=== PATIENT | male | born 1930 | race Caucasian/White ===

== ENCOUNTER 2018-01-07 14:03 | Outpatient (CLI) | payer MEDICARE ==
[2018-01-07 18:15] LABS: INR 2.5 (0.8-1.2); PT - PROTHROMBIN TIME 27.3 secs (9.9-12.6)
== END 2018-01-07 14:04 | disposition home or self-care (01) ==
LOC: LAB.F 14:03
PROVIDERS: ATTEND Internal Medicine Cardiovascular Disease
DX: I48.91 Unspecified atrial fibrillation (principal)
CPT/HCPCS: 36415; 85610

== ENCOUNTER 2018-03-03 11:01 | Outpatient (CLI) | payer MEDICARE ==
[2018-03-03 17:54] LABS: INR 2.2 (0.8-1.2); PT - PROTHROMBIN TIME 24.2 secs (9.9-12.6)
== END 2018-03-03 11:02 | disposition home or self-care (01) ==
LOC: LAB.F 11:01
PROVIDERS: ATTEND Internal Medicine Cardiovascular Disease
DX: I48.91 Unspecified atrial fibrillation (principal)
CPT/HCPCS: 36415; 85610

== ENCOUNTER 2018-03-23 09:42 | Outpatient (CLI) | payer MEDICARE | END 2018-03-23 09:43 | disposition critical access hospital (66) | LOC: EMS 09:42 | PROVIDERS: ATTEND Surgery | DX: M54.2 Cervicalgia (principal); W19.XXXA Unspecified fall, initial encounter; Y92.008 Other place in unspecified non-institutional (private) residence as the place of occurrence of the external cause | CPT/HCPCS: A0425; A0429 ==

== ENCOUNTER 2018-03-23 10:10 | Emergency (ER) | payer MEDICARE ==
[2018-03-23] MEDS ORDERED: SODIUM CHLORIDE 0.9% 1,000 ML IV ONE (10:20)
[2018-03-23] MEDS ORDERED: METOPROLOL 5 MG/5 ML VIAL IVP STA (10:23)
[2018-03-23 10:26] LABS: BASOPHILS % (AUTO) 0.2 %; HGB - HEMOGLOBIN 13.5 g/dL (14.0-18.0); LYMPHOCYTES # (AUTO) 0.3 10^3/uL (1.5-3.5); LYMPHOCYTES % (AUTO) 2.1 %; MEAN CORPUSCULAR HEMOGLOBIN 30.2 pg (27.0-31.0); MEAN CORPUSCULAR HGB CONC 32.5 g/dL (32.0-36.0); MEAN PLATELET VOLUME 11.8 fL (7.4-11.4); MONOCYTES # (AUTO) 1.5 10^3/uL (0.0-1.0); MONOCYTES % (AUTO) 8.8 %; NEUTROPHILS % (AUTO) 88.9 %; PLT - PLATELET COUNT 133 10^3/uL (130-450); RED BLOOD COUNT 4.45 10^6/uL (4.70-6.10); RED CELL DISTRIBUTION WIDTH 14.4 % (12.0-15.0); WHITE BLOOD COUNT 16.8 x10^3/uL (4.8-10.8)
--- NOTE | 2018-03-23 10:27 | ED Physician Documentation ---
History of Present Illness - Stated complaint Stated Complaint: FALL - Chief complaint Chief Complaint: Trauma Hd/Nk - Additonal information Additional information: hx from EMS and pt 87 male per pt hx a fib on coumadin per [facility] signed < 1 m ago DNR comfort care per EMS pt was found down on floor this AM by his audit officer pt states he was on the couch when he experienced dysequilibrium he was too unsteady to get up so he eventually lowered himself to the floor - no fall etc he denies VILLAGOMEZ neck pain chest pain abd pain states he needs to urinate no reported recent fever cough per EMS profoundly hypoxic req neb en route Review of Systems Constitutional: reports: Fatigue. denies: Fever Cardiac: denies: Chest pain / pressure Respiratory: reports: Dyspnea. denies: Cough GI: denies: Abdominal Pain, Nausea, Vomiting Musculoskeletal: denies: Neck pain Neurologic: reports: Generalized weakness, Other (vertigo). denies: Headache, Head injury Endocrine: reports: Easy bruising / bleeding Immunocompromised: denies: Immunocompromised PD PAST MEDICAL HISTORY - Present Medications Home Medications: Ambulatory Orders Medication Instructions Recorded Confirmed Diltiazem HCl [Diltiazem ER] 240 mg PO DAILY 03/23/18 03/23/18 Furosemide [Furosemide] 40 mg PO BIDDIURETIC 03/23/18 03/23/18 Latanoprost [Latanoprost] 1 drops EACHEYE QPM 03/23/18 03/23/18 Metoprolol Succinate 50 mg PO BID 03/23/18 03/23/18 Potassium Chloride 20 mg PO TIDWM 03/23/18 03/23/18 Warfarin Sodium 2.5 mg PO DAILY 03/23/18 03/23/18 methIMAzole [Methimazole] 5 mg PO DAILY 03/23/18 03/23/18 - Allergies Allergies/Adverse Reactions: Allergies Allergy/AdvReac Type Severity Reaction Status Date / Time No Known Drug Allergies Allergy Verified 03/23/18 10:23 PD ED PE NORMAL - Vitals Vital signs reviewed: Yes - General General: Alert and oriented X 3 - HEENT HEENT: PERRL, Other (very dry with some caked blood but no [place]hue lac etc seen) . No: Atraumatic (dried blood around mouth but no broken teeth or toung / lip lac found) - Neck Neck: No bony TTP - Cardiac Cardiac: No: RRR (rapid) - Respiratory Respiratory: Other (tachypenic shallow) - Abdomen Abdomen: Soft, Non tender - Back Back: No spinal TTP - Derm Derm: Other (pale) - Extremities Extremities: Other (pelvix stable and NT, discolored LE c/w chronic PVD, no edema) - Neuro Neuro: Other (speech is difficult to undertsand but seems mor due to very dry MM than due to inability pronocunce, no aphasia, moves all ext, diffusley weak but no unilateral weakness or facial droop) Results - Vitals Vitals: Vital Signs - 24 hr 03/23/18 03/23/18 03/23/18 10:13 10:38 10:39 Temperature 37.4 C Heart Rate 138 H 111 H 117 H Respiratory 34 H 34 H 30 H Rate Blood Pressure 156/93 H 169/99 H 107/75 O2 Saturation 94 96 95 03/23/18 03/23/18 03/23/18 10:41 10:46 10:50 Temperature Heart Rate 115 H 116 H 126 H Respiratory 36 H 32 H 32 H Rate Blood Pressure 123/72 121/70 121/79 O2 Saturation 95 96 96 03/23/18 03/23/18 03/23/18 11:05 11:12 13:29 Temperature Heart Rate 112 H 133 H 148 H Respiratory 24 34 H 32 H Rate Blood Pressure 107/80 125/104 H 127/72 O2 Saturation 95 89 L 89 L Oxygen O2 Source Non-rebreather mask Oxygen Flow Rate 6 - EKG (time done) 1016 Other comments: Other comments (irreg tachycardia c.w a fib, varying morphology narrow and wide likely narrow complex with PVCs) Compare to prior EKG: No: Old EKG unavailable (trying to obtain, called on [facility] and the office does not have an EKG) - Labs Labs: Laboratory Tests 03/23/18 03/23/18 03/23/18 10:15 10:15 10:15 WBC 16.8 H RBC 4.45 L Hgb 13.5 L Hct 41.4 L MCV 93.0 MCH 30.2 MCHC 32.5 RDW 14.4 Plt Count 133 MPV 11.8 H Neut # (Auto) 15.0 H Lymph # (Auto) 0.3 L [place] # (Auto) 1.5 H Eos # (Auto) 0.0 Baso # (Auto) 0.0 Absolute Nucleated RBC 0.00 Nucleated RBC % 0.0 PT INR Sodium 142 Potassium 2.9 L Chloride 107 Carbon Dioxide 23 Anion Gap 12.0 BUN 35 H Creatinine 1.0 Estimated GFR (MDRD) 71 L Glucose 203 H Lactic Acid Calcium 9.6 Total Bilirubin 1.6 H AST 47 H ALT 24 Alkaline Phosphatase 57 Total Creatine Kinase 992 H Troponin I 0.37 Total Protein 7.6 Albumin 3.6 Globulin 4.0 Albumin/Globulin Ratio 0.9 L Lipase 16 L Urine Color Urine Clarity Urine pH Ur Specific [place] Urine Protein Urine Glucose (UA) Urine Ketones Urine Occult Blood Urine Nitrite Urine Bilirubin Urine Urobilinogen Ur Leukocyte Esterase Urine RBC Urine WBC Ur Squamous Epith Cells Urine Bacteria Urine Casts Ur Microscopic Review Urine Culture Comments 03/23/18 03/23/18 03/23/18 10:15 10:55 11:30 WBC RBC Hgb Hct MCV MCH MCHC RDW Plt Count MPV Neut # (Auto) Lymph # (Auto) [place] # (Auto) Eos # (Auto) Baso # (Auto) Absolute Nucleated RBC Nucleated RBC % PT 44.9 H INR 4.2 H Sodium Potassium Chloride Carbon Dioxide Anion Gap BUN Creatinine Estimated GFR (MDRD) Glucose Lactic Acid 2.4 H Calcium Total Bilirubin AST ALT Alkaline Phosphatase Total Creatine Kinase Troponin I Total Protein Albumin Globulin Albumin/Globulin Ratio Lipase Urine Color DARK YELLOW Urine Clarity SL. CLOUDY Urine pH 5.5 Ur Specific [place] 1.020 Urine Protein 100 H Urine Glucose (UA) NEGATIVE Urine Ketones TRACE Urine Occult Blood LARGE H Urine Nitrite NEGATIVE Urine Bilirubin NEGATIVE Urine Urobilinogen 0.2 (NORMAL) Ur Leukocyte Esterase NEGATIVE Urine RBC 11-25 H Urine WBC 0-3 Ur Squamous Epith Cells FEW Squamous Urine Bacteria Moderate H Urine Casts 6-10 Granular Casts Ur Microscopic Review INDICATED Urine Culture Comments INDICATED - Rads (name of study) CXR Radiology: See rad report (limited by rotation - per rad, L basilar consolidation favor atelectasis) PD MEDICAL DECISION MAKING - ED course ED course: 87 male found down but denies fall states severe disequilibrium so lowered himself to floor and could not get up exam notable for dehydration, hypoxia wup indicates rhabdo and abn EKG with borderline trop tachycardia could be due to many causes - underlying a fib, dehydration, ACS, sepsis etc no CHF on CXR so started IVF - not full 30cc/kg as need to watch for edema and pt has not source of infection/sepsis identified so far (waiting on urine still - eventually resulted + bacteria but no WBC leak est or nitrates) - could be tachy from a fib and or dehydration as well consider MRI to r/out CVA as course of weakness and disequilibrium - if this is a CVA pt would not be a TPA candidate due to unknown time of onset and INR - also pt is DNR comfort care so would need to consider whether to pursue MRI and what exactly would be done with results planned need admit for hydration and rate control and O2 in keeping with comfort care, rpt CXR after hydration to assess for pna, also will need SW as EMS reports he lives alone spoke to hospitalist at 11 AM needed old records - called office for PMD documented on [facility] staff states pt just moved from [place] and they have only seen him twice and have requested but not received old records - no EKG available per problem summary from new PMD, pmhx = HTN hyperthyroid a fib aortic stenosis CHF BPH OA and meds include K, dilt, oxycodone, xalatan, apap, biotin, methimazole, metoprolol succ, lasix, coumadin MIMI also called [place] office but just got a busy signal MIMI Zhao managed to find pts prior cardio in [facility] and got old EKG 2016 showing narrow complex rate controlled a fib with precordial ST depression pt was given 1 L NS in ED and became more SOA - I went to re-examine him - he now sounds more wet so so no further fluids given and RT at bedside to adjust oxygen mask pt continued to worsen requested RT start BiPAP - no intubation given DNR comfort care [facility] - but before BiPAP could even be started pt became unresponsive, apneic and has no pulse - tele shows very slow (20-30) wide complex PEA pt is DNR comfort care per [facility] - and I had spoken with pt as well upon his arrival and he had told me "if I'm gone just let me be" pt unresponsive, no corneal reflex, no spont resp, no heart beat, no pulse - pronounced at 1235 house william Rich present and will attempt to contact family and PMD - Sepsis Event Vital Signs: Vital Signs - 24 hr 03/23/18 03/23/18 03/23/18 10:13 10:38 10:39 Temperature 37.4 C Heart Rate 138 H 111 H 117 H Respiratory 34 H 34 H 30 H Rate Blood Pressure 156/93 H 169/99 H 107/75 O2 Saturation 94 96 95 03/23/18 03/23/18 03/23/18 10:41 10:46 10:50 Temperature Heart Rate 115 H 116 H 126 H Respiratory 36 H 32 H 32 H Rate Blood Pressure 123/72 121/70 121/79 O2 Saturation 95 96 96 03/23/18 03/23/18 03/23/18 11:05 11:12 13:29 Temperature Heart Rate 112 H 133 H 148 H Respiratory 24 34 H 32 H Rate Blood Pressure 107/80 125/104 H 127/72 O2 Saturation 95 89 L 89 L Oxygen O2 Source Non-rebreather mask Oxygen Flow Rate 6 Departure - Departure Disposition: 20 Clinical Impression: PEA (Pulseless electrical activity), Abnormal EKG Respiratory failure Qualifiers: Chronicity: acute Respiratory failure complication: hypoxia Qualified Code(s): J96.01 - Acute respiratory failure with hypoxia Rhabdomyolysis Qualifiers: Rhabdomyolysis type: non-traumatic Qualified Code(s): M62.82 - Rhabdomyolysis Discharge Date/Time: 03/23/18 12:35
[2018-03-23 10:38] LABS: ALBUMIN 3.6 g/dL (3.2-5.5); ALBUMIN/GLOBULIN RATIO 0.9 (1.0-2.2); BILIRUBIN,TOTAL 1.6 mg/dL (0.2-1.0); CALCIUM 9.6 mg/dL (8.5-10.3); TOTAL PROTEIN 7.6 g/dL (6.7-8.2)
[2018-03-23 10:41] LABS: INR 4.2 (0.8-1.2); PT - PROTHROMBIN TIME 44.9 secs (9.9-12.6)
--- NOTE | 2018-03-23 10:44 | XRAY Report ---
Procedure Date: 03/23/2018 Accession Number: [id number] / [id number] Procedure: XR - Chest 1 View X-Ray CPT Code: 13430 FULL RESULT: EXAM: CHEST RADIOGRAPHY EXAM DATE: 03/23/2018 10:34 AM. CLINICAL HISTORY: Transient alteration in awareness. COMPARISON: None. TECHNIQUE: 1 view. Examination is technically limited by patient rotation. FINDINGS: Lungs/Pleura: Minor streaky opacities are seen in the left lung base likely due to atelectasis or scarring. There is no consolidation. No effusion is present. There is no vascular congestion or pneumothorax. Mediastinum: Within exam limitations, the cardiomediastinal contour is normal. Other: None. IMPRESSION: Minor left basilar opacification favoring atelectasis. No acute findings seen otherwise. RADIA
[2018-03-23] MEDS ORDERED: SODIUM CHLORIDE FLUSH 0.9% 10 ML SYRINGE IVP PRN (11:20)
[2018-03-23] MEDS ORDERED: TEMAZEPAM 15 MG CAPSULE PO PRN (11:20)
[2018-03-23] MEDS ORDERED: ACETAMINOPHEN 325 MG TABLET PO PRN (11:20)
[2018-03-23] MEDS ORDERED: PROCHLORPERAZINE 10 MG/2 ML VIAL IVP PRN (11:20)
[2018-03-23 11:43] LABS: BILIRUBIN,URINE NEGATIVE (NEGATIVE); GLUCOSE, URINE (UA) NEGATIVE (NEGATIVE); KETONES,URINE (UA) TRACE mg/dL (NEGATIVE); LEUKOCYTE ESTERASE, URINE NEGATIVE (NEGATIVE); NITRITE,URINE NEGATIVE (NEGATIVE); OCCULT BLOOD,URINE LARGE (NEGATIVE); PH,URINE 5.5 PH (5.0-7.5); PROTEIN,URINE 100 mg/dL (NEGATIVE); UROBILINOGEN,URINE 0.2 (NORMAL) E.U./dL (NORMAL)
[2018-03-23 11:48] LABS: CLARITY,URINE SL. CLOUDY (CLEAR)
[2018-03-23] MEDS ORDERED: DEXTROSE 5%-0.9% NACL 1,000 ML IV SCH (12:00)
[2018-03-23 12:08] LABS: BACTERIA,URINE Moderate /HPF (None Seen); CASTS, URINE 6-10 Granular Casts /LPF; SQUAMOUS EPITHELIAL CELL,UR FEW Squamous (<= Few)
[2018-03-23 13:30] VITALS: BP 127/72
[2018-03-23] MEDS ORDERED: SODIUM CHLORIDE FLUSH 0.9% 10 ML SYRINGE IVP SCH (17:00)
[2018-03-23] MEDS ORDERED: METOPROLOL SUCCINATE 50 MG TABLET PO SCH (21:00)
[2018-03-24] MEDS ORDERED: methIMAzole 5 MG TABLET PO SCH (09:00)
[2018-03-24] MEDS ORDERED: POLYETHYLENE GLYCOL 3350 17 GM PACKET PO SCH (09:00)
[2018-03-24] MEDS ORDERED: FAMOTIDINE 20 MG TABLET PO SCH (09:00)
== END 2018-03-23 12:35 | disposition expired ==
LOC: EDUNIT# → ED 10:10 → MS2 11:20 → UNDOADMIN 11:20
DX: I46.9 Cardiac arrest, cause unspecified (principal); R94.31 Abnormal electrocardiogram [ECG] [EKG]; J96.01 Acute respiratory failure with hypoxia; M62.82 Rhabdomyolysis; E86.0 Dehydration; I10 Essential (primary) hypertension
CPT/HCPCS: 36415; 71045; 80053; 81001; 81003; 82550; 83605; 83690; 84484; 85025; 85610; 87040; 87086; 93005; 96374; 99284; 99285